=== PATIENT | female | born 1950 | race Caucasian/White ===

== ENCOUNTER 2017-05-12 11:43 | Emergency (ER) | payer MEDICARE, OTHER ==
--- NOTE | 2017-05-12 13:06 | XRAY Preliminary Report ---
Exam: XR ANKLE 3 VIEW RT IMPRESSION: Soft tissue swelling. No acute fracture or dislocation identified. [facility] SITE ID: [id number]
--- NOTE | 2017-05-12 13:06 | XRAY Report ---
EXAM: RIGHT ANKLE RADIOGRAPHY EXAM DATE: 05/12/2017 12:08 PM. CLINICAL HISTORY: Pain after fall COMPARISON: None. TECHNIQUE: 3 views. FINDINGS: Bones: Bony mineralization appears appropriate. No acute fracture or focal osseous destruction. Small plantar and posterior calcaneal spurs. Joints: Alignment and joint spaces appear maintained. No dislocation. Soft Tissues: Soft tissue swelling. IMPRESSION: Soft tissue swelling. No acute fracture or dislocation identified. [facility] Referring Provider Line: [phone] SITE ID: [id number]
[2017-05-12] MEDS ORDERED: HYDROmorphone 1 MG/ML CARPUJECT IM STA (13:19)
--- NOTE | 2017-05-12 13:21 | ED Physician Documentation ---
PD HPI Fall - Stated complaint Stated Complaint: GLF/HEAD, BACK, ANKLE PX - Chief complaint Chief Complaint: Back Pain - History obtained from History obtained from: Patient, Family - History of Present Illness Mechanism of injury: Slipped (Ground-level fall in the garage falling backwards against concrete, her right leg was under her and she has right ankle pain and also has low back pain on the left side. 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 - Present Medications Home Medications: Ambulatory Orders Medication Instructions Recorded Confirmed Cyclobenzaprine [Flexeril] 10 mg PO Q8H PRN #20 tablet 02/17/13 Levothyroxine Sodium [Synthroid] 75 mcg PO DAILY 02/17/13 02/17/13 Metformin HCl [Glucophage] 1,500 mg PO HS 02/17/13 02/17/13 oxyCODONE [Roxicodone] 5 mg PO Q4-6H PRN #10 tablet 02/17/13 predniSONE [Deltasone] 60 mg PO DAILY 5 Days tablet 02/17/13 Acetaminophen with Codeine 1 each PO Q4H PRN #15 tablet 05/12/17 [Tylenol with Codeine #3 Tablet] Ciprofloxacin HCl [Cipro] 500 mg PO BID #14 tablet 05/12/17 - Allergies Allergies/Adverse Reactions: Allergies Allergy/AdvReac Type Severity Reaction Status Date / Time No Known Drug Allergies Allergy Verified 02/17/13 11:02 - Social History Does the pt smoke?: No Smoking Status: Never smoker Does the pt drink ETOH?: No Does the pt have substance abuse?: No - Immunizations Immunizations are current?: Yes PD ED PE NORMAL - Vitals Vital signs reviewed: Yes - General General: Alert and oriented X 3, No acute distress - HEENT HEENT: PERRL, EOMI - Neck Neck: Supple, no meningeal sign, No bony TTP - Cardiac Cardiac: RRR, No murmur - Respiratory Respiratory: No respiratory distress, Clear bilaterally - Abdomen Abdomen: Non tender - Back Back: Other (She has what seems like soft tissue tenderness around L2 laterally to the left. It is not in the midline. There is no cally or ecchymosis there.) - Derm Derm: Normal color, Warm and dry - Extremities Extremities: Other (Right ankle is tender laterally with some swelling but no deformity or limited range of motion.) - Neuro Neuro: Alert and oriented X 3, Normal speech Results - Vitals Vitals: Vital Signs - 24 hr 05/12/17 11:49 Temperature 36.1 C L Heart Rate 94 Respiratory 20 Rate Blood Pressure 149/49 H O2 Saturation 100 Oxygen O2 Source Room air - Labs Labs: Laboratory Tests 05/12/17 13:30 Urine Color YELLOW Urine Clarity CLOUDY Urine pH 5.5 Ur Specific [place] 1.025 Urine Protein TRACE Urine Glucose (UA) NEGATIVE Urine Ketones NEGATIVE Urine Occult Blood NEGATIVE Urine Nitrite POSITIVE H Urine Bilirubin NEGATIVE Urine Urobilinogen 0.2 (NORMAL) Ur Leukocyte Esterase NEGATIVE Urine RBC TNTC H Urine WBC >25 H Ur Squamous Epith Cells FEW Squamous Urine Bacteria Many H Ur Microscopic Review INDICATED Urine Culture Comments INDICATED - Rads (name of study) LS XR Radiology: EMP read contemporaneously (NAD) PD MEDICAL DECISION MAKING - ED course ED course: 66-year-old woman with fall and back pain, some flank pain but no overt bony tenderness, x-rays negative. Also an ankle sprain. Urine looks more like pyelonephritis than anything else and is so treated. Departure - Departure Disposition: 01 Home, Self Care Clinical Impression: Pyelonephritis Back pain Qualifiers: Back pain location: low back pain Chronicity: acute Back pain laterality: left Sciatica presence: without sciatica Qualified Code(s): M54.5 - Low back pain Fall Qualifiers: Encounter type: initial encounter Qualified Code(s): W19.XXXA - Unspecified fall, initial encounter Right ankle sprain Qualifiers: Encounter type: initial encounter Involved ligament of ankle: anterior talofibular ligament Qualified Code(s): S93.491A - Sprain of other ligament of right ankle, initial encounter Condition: Good Record reviewed to determine appropriate education?: Yes Instructions: Pyelonephritis Dc, ED Sprain Ankle W X Ray, ED Low Back Pain Injury Prescriptions: Acetaminophen with Codeine [Tylenol with Codeine #3 Tablet] 1 each PO Q4H PRN # 15 tablet PRN Reason: Pain Ciprofloxacin HCl [Cipro] 500 mg PO BID #14 tablet Comments: Call your doctor to arrange a follow-up appointment, make the next available appointment. In the interim, return anytime if worse or if new symptoms develop. Do not drink or drive while taking narcotic pain medication. Note that many narcotic pain relievers also contain Tylenol/acetaminophen. Please ensure that your total dose of acetaminophen from all sources does not exceed 3 g (3000 mg) per day. You may get constipated while on this medication. Take a stool softener such as Colace twice a day while you are on it. Also add an abkk-crx-cpacnac laxative such as senna or MiraLAX on any day that you do not have a bowel movement. If you received a narcotic pain medication or sedative while in the emergency department, do not drive for the next 24 hours. We will culture your urine, the results should be done in 48-72 hours. If an antibiotic change is necessary we will call you. Return if worse in the meantime, especially if you develop increasing flank pain, fevers, or cannot keep down the medication.
[2017-05-12 13:50] LABS: BILIRUBIN,URINE NEGATIVE (NEGATIVE); GLUCOSE, URINE (UA) NEGATIVE (NEGATIVE); KETONES,URINE (UA) NEGATIVE (NEGATIVE); LEUKOCYTE ESTERASE, URINE NEGATIVE (NEGATIVE); NITRITE,URINE POSITIVE (NEGATIVE); OCCULT BLOOD,URINE NEGATIVE (NEGATIVE); PH,URINE 5.5 PH (5.0-7.5); PROTEIN,URINE TRACE mg/dL (NEGATIVE); UROBILINOGEN,URINE 0.2 (NORMAL) E.U./dL (NORMAL)
[2017-05-12 13:51] LABS: CLARITY,URINE CLOUDY (CLEAR)
--- NOTE | 2017-05-12 14:05 | XRAY Report ---
EXAM: LUMBOSACRAL SPINE RADIOGRAPHY EXAM DATE: 05/12/2017 01:57 PM. CLINICAL HISTORY: Back pain, fall. COMPARISONS: None. TECHNIQUE: 3 views. FINDINGS: Alignment: Normal. No spondylolisthesis or scoliosis. Bones: 5 lumbar vertebrae. No fractures or bone lesions. Disks: Minimal disk space narrowing at T12-L1, L1-L2, and L2-L3 with marginal lipping. Other disk spa ori well-preserved. Facets: Degenerative changes most marked at L4-L5 and L5-S1. Sacroiliac Joints: Unremarkable. Soft Tissues: Unremarkable. Surgical clips in right upper quadrant. IMPRESSION: Degenerative changes. No acute disease. [facility] Referring Provider Line: [phone] SITE ID: [id number]
[2017-05-12 14:08] LABS: BACTERIA,URINE Many /HPF (None Seen); RBC,URINE TNTC /HPF (0-5); SQUAMOUS EPITHELIAL CELL,UR FEW Squamous (<= Few)
[2017-05-12] MEDS ORDERED: CIPROFLOXACIN 250 MG TABLET PO STA (14:25)
[2017-05-12 14:33] VITALS: BP 155/95
== END 2017-05-12 14:41 | disposition home or self-care (01) ==
LOC: ED 11:43
DX: N12 Tubulo-interstitial nephritis, not specified as acute or chronic (principal); M54.5 Low back pain; S93.491A Sprain of other ligament of right ankle, initial encounter; W18.30XA Fall on same level, unspecified, initial encounter; Y92.015 Private garage of single-family (private) house as the place of occurrence of the external cause; E11.9 Type 2 diabetes mellitus without complications; Z79.84 Long term (current) use of oral hypoglycemic drugs; E03.9 Hypothyroidism, unspecified
CPT/HCPCS: 72100; 73610; 81001; 87086; 87181; 96372; 99283; 99284; A9270; J1170; 81003

== ENCOUNTER 2017-05-13 13:10 | Outpatient (CLI) | payer MEDICARE, OTHER | END 2017-05-13 13:11 | disposition critical access hospital (66) | LOC: EMS 13:10 | PROVIDERS: ATTEND Surgery | DX: R10.32 Left lower quadrant pain (principal) | CPT/HCPCS: A0425; A0429 ==

== ENCOUNTER 2017-05-13 13:32 | Observation (INO) | payer MEDICARE, OTHER ==
[2017-05-13] MEDS ORDERED: HYDROmorphone 1 MG/ML CARPUJECT IVP STA ×2 (13:37→15:16)
[2017-05-13] MEDS ORDERED: ONDANSETRON 4 MG/2 ML VIAL IVP STA ×2 (13:37→15:25)
--- NOTE | 2017-05-13 13:39 | ED Physician Documentation ---
PD HPI BACK PAIN - Stated complaint Stated Complaint: LL FLANK - History obtained from History obtained from: Patient, Family, EMS - History of Present Illness Timing - onset: Other (She was seen here yesterday after a ground-level fall injuring her Right ankle left flank. X-rays were negative and the ankles much better today. She was noted to have pyuria and current culture is growing E. coli, sensitivities not yet available. She had one dose of Cipro yesterday, just took a second dose now. Took them a while to fill the prescription. 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 - Present Medications Home Medications: Ambulatory Orders Medication Instructions Recorded Confirmed Levothyroxine Sodium [Synthroid] 75 mcg PO DAILY 02/17/13 02/17/13 Metformin HCl [Glucophage] 1,500 mg PO HS 02/17/13 02/17/13 Acetaminophen with Codeine 1 each PO Q4H PRN #15 tablet 05/12/17 [Tylenol with Codeine #3 Tablet] Ciprofloxacin HCl [Cipro] 500 mg PO BID #14 tablet 05/12/17 - Allergies Allergies/Adverse Reactions: Allergies Allergy/AdvReac Type Severity Reaction Status Date / Time No Known Drug Allergies Allergy Verified 05/13/17 13:40 - Social History Does the pt smoke?: No Smoking Status: Never smoker Does the pt drink ETOH?: No Does the pt have substance abuse?: No - Family History Family history: reports: Non contributory - Immunizations Immunizations are current?: Yes PD ED PE NORMAL - Vitals Vital signs reviewed: Yes - General General: Alert and oriented X 3, Other (Obviously in severe pain) - HEENT HEENT: PERRL, EOMI - Neck Neck: Supple, no meningeal sign, No bony TTP - Cardiac Cardiac: RRR, No murmur - Respiratory Respiratory: No respiratory distress, Clear bilaterally - Abdomen Abdomen: Normal bowel sounds, Soft, Non tender - Back Back: No CVA TTP, No spinal TTP - Derm Derm: Normal color, Warm and dry - Extremities Extremities: No edema, No calf tenderness / cord - Neuro Neuro: Alert and oriented X 3, Normal speech - Psych Psych: Normal mood, Normal affect Results - Vitals Vitals: Vital Signs - 24 hr 05/13/17 05/13/17 05/13/17 13:36 14:05 14:45 Temperature 36.0 C L 36.4 C L Heart Rate 96 96 96 Respiratory 20 18 16 Rate Blood Pressure 163/92 H 150/72 H 150/70 H O2 Saturation 95 91 L 94 05/13/17 05/13/17 15:58 17:03 Temperature Heart Rate 92 94 Respiratory 14 14 Rate Blood Pressure 152/88 H 132/58 H O2 Saturation 94 92 Oxygen O2 Source Nasal cannula Oxygen Flow Rate 2 - Labs Labs: Laboratory Tests 05/13/17 05/13/17 13:53 13:53 WBC 11.3 H RBC 5.04 Hgb 16.3 H Hct 47.4 H MCV 94.1 MCH 32.4 H MCHC 34.4 RDW 14.2 Plt Count 170 MPV 8.7 Neut # 8.4 H Lymph # 1.9 [place] # 0.6 Eos # 0.2 Baso # 0.1 Absolute Nucleated RBC 0.01 Nucleated RBC % 0.1 Sodium 135 Potassium 3.9 Chloride 101 Carbon Dioxide 24 Anion Gap 10.0 BUN 16 Creatinine 0.7 Estimated GFR (MDRD) 84 L Glucose 168 H Calcium 9.2 Total Bilirubin 0.7 AST 43 H ALT 45 Alkaline Phosphatase 83 Total Protein 8.1 Albumin 4.4 Globulin 3.7 Albumin/Globulin Ratio 1.2 Lipase 17 L - Rads (name of study) CT KUB Radiology: EMP read contemporaneously (Minimally displaced posterior left 11th rib fracture and left L1 transverse process fracture. No evidence of acute organ injury. She has bilateral adrenal adenomas and diverticulosis without diverticulitis.) PD MEDICAL DECISION MAKING - ED course ED course: 66-year-old woman with fall yesterday, x-rays were negative and she did have pyelonephritis growing E. coli, sensitivities not yet available. Now with severe and uncontrolled pain that was difficult to control in the emergency department. CT done in showing a single rib fracture and a lumbar transverse process fracture. Her pain and nausea was difficult to control here despite several rounds of IV pain and nausea medication. She will be placed in observation for pain control. Spoke with Dr. Barrett for observation at 5:30 PM. Departure - Departure Disposition: ED Place in Observation Clinical Impression: Pyelonephritis Fall Qualifiers: Encounter type: subsequent encounter Qualified Code(s): W19.XXXD - Unspecified fall, subsequent encounter Lumbar transverse process fracture Qualifiers: Encounter type: initial encounter Fracture type: closed Qualified Code(s): S32.009A - Unspecified fracture of unspecified lumbar vertebra, initial encounter for closed fracture Rib fracture Qualifiers: Encounter type: initial encounter Rib fracture type: single rib Fracture type: closed Laterality: left Qualified Code(s): S22.32XA - Fracture of one rib, left side, initial encounter for closed fracture
[2017-05-13 14:02] LABS: BASOPHILS # (AUTO) 0.1 10^3/uL (0.0-0.1); EOSINOPHILS # (AUTO) 0.2 10^3/uL (0.0-0.7); EOSINOPHILS % (AUTO) 1.9 %; HGB - HEMOGLOBIN 16.3 g/dL (12.0-16.0); LYMPHOCYTES # (AUTO) 1.9 10^3/uL (1.5-3.5); MEAN CORPUSCULAR HEMOGLOBIN 32.4 pg (27.0-31.0); MEAN CORPUSCULAR HGB CONC 34.4 g/dL (32.0-36.0); MEAN CORPUSCULAR VOLUME 94.1 fL (81.0-99.0); MEAN PLATELET VOLUME 8.7 fL (7.9-10.8); MONOCYTES # (AUTO) 0.6 10^3/uL (0.0-1.0); MONOCYTES % (AUTO) 5.5 %; NEUTROPHILS # (AUTO) 8.4 10^3/uL (1.5-6.6); NEUTROPHILS % (AUTO) 74.6 %; PLT - PLATELET COUNT 170 10^3/uL (130-450); RED BLOOD COUNT 5.04 10^6/uL (4.20-5.40); RED CELL DISTRIBUTION WIDTH 14.2 % (12.0-15.0); WHITE BLOOD COUNT 11.3 x10^3/uL (4.8-10.8)
[2017-05-13 14:13] LABS: ALBUMIN 4.4 g/dL (3.2-5.5); ALBUMIN/GLOBULIN RATIO 1.2 (1.0-2.2); BILIRUBIN,TOTAL 0.7 mg/dL (0.2-1.0); CALCIUM 9.2 mg/dL (8.5-10.3); CREATININE 0.7 mg/dL (0.4-1.0); TOTAL PROTEIN 8.1 g/dL (6.7-8.2)
[2017-05-13] MEDS ORDERED: KETOROLAC 60 MG/2 ML VIAL IVP STA (16:02)
[2017-05-13] MEDS ORDERED: METOCLOPRAMIDE 10 MG/2 ML VIAL IVP STA (16:11)
--- NOTE | 2017-05-13 16:11 | CT Report ---
EXAM: CT ABDOMEN AND PELVIS EXAM DATE: 05/13/2017 03:38 PM. CLINICAL HISTORY: L flank pain. COMPARISONS: None. TECHNIQUE: Routine axial helical CT imaging was performed through the abdomen and pelvis without IV c ontrast. Reconstructions: Coronal and sagittal. In accordance with CT protocol optimization, one or more of the following dose reduction techniques w ere utilized for this exam: automated exposure control, adjustment of mA and/or KV based on patient s ize, or use of iterative reconstructive technique. FINDINGS: Lung Bases: Comparison mild, nonspecific reticular density within the lung bases. This could represen t atelectasis. Abdominal Organs: Liver demonstrates a mildly nodular contour. There is a small cyst within the left hepatic lobe. The spleen and pancreas demonstrate no significant abnormalities. There are small bilat eral adrenal gland, is. The kidneys demonstrate no stones or hydronephrosis. Gallbladder/bile ducts: No significant abnormalities. Peritoneal Cavity: No dilated or thick-walled bowel is seen. There is distal colon diverticulosis. Th ere is no evidence of diverticulitis. No intraperitoneal free air or free fluid. No enlarged mesenter ic or retroperitoneal lymph nodes. Pelvic Organs: No bladder stones or wall thickening. Noncontrast images of the visualized pelvic orga ns are unremarkable. Vasculature: Unremarkable. Other: There is minimally displaced fracture of the left posterior 11th rib. There is minimally displ aced fracture through the left L1 transverse process. IMPRESSION: 1. There is minimally displaced fracture through the posterior left 11th rib. There is minimally disp laced fracture through the left L1 transverse process. 2. No evidence of acute traumatic injury to the solid or hollow viscus organs of the abdomen and pelv is. 3. There are bilateral adrenal adenomas. 4. There is distal colon diverticulosis. No evidence of diverticulitis. Referring Provider Line: [phone] SITE ID: [id number]
[2017-05-13] MEDS ORDERED: GABAPENTIN 100 MG CAPSULE PO STA (16:14)
[2017-05-13] MEDS ORDERED: cefTRIAXone 1 GM in SODIUM CHLORIDE 0.9% MINIBAG 100 ML IV STA (18:00)
[2017-05-13] MEDS ORDERED: IBUPROFEN 600 MG TABLET PO PRN (18:01)
[2017-05-13] MEDS ORDERED: SODIUM CHLORIDE FLUSH 0.9% 10 ML SYRINGE IVP PRN (18:01)
[2017-05-13] MEDS ORDERED: PROCHLORPERAZINE 10 MG/2 ML VIAL IVP PRN (18:01)
[2017-05-13] MEDS ORDERED: HYDROmorphone 1 MG/ML CARPUJECT IVP PRN (18:01)
[2017-05-13] MEDS ORDERED: ACETAMINOPHEN 325 MG TABLET PO PRN (18:01)
[2017-05-13] MEDS ORDERED: oxyCODONE 5 MG TABLET PO PRN ×2 (18:01)
--- NOTE | 2017-05-13 18:01 | HISTORY & PHYSICAL EXAMINATION ---
Chief Complaint - Chief Complaint Chief Complaint: Back pain History of Present Illness - Admitted From Admitted From:: Emergency department - History Obtained From Records Reviewed: Yes History obtained from: Patient Exam Limitations: None - History of Present Illness HPI Comment/Other: Patient is a 66-year-old female with a past medical history significant for diabetes, hypothyroidism and obesity who presented to the emergency department with complaint of left flank pain and posterior rib pain. The patient was in the emergency room just yesterday after she had a fall at home. The patient states that she was in her garage when she tripped over something and fell backwards hitting her lower back and rib cage. The patient presented to the emergency room at that time with significant pain and underwent x-rays of her ankle and lumbar spine which were negative. During the ER visit the patient also had a UA that was positive and was sent home with ciprofloxacin to treat her UTI. She was also sent home with hydrocodone to relieve her pain. The patient states that today her pain became unbearable to the point where she could barely stand without having severe symptoms. The patient states that the pain was so bad that she had to come back into the emergency department. The patient states that the pain continues to be in the left flank and lower posterior rib cage area. The patient denies any fevers, chills, headaches, blurred vision, runny nose, sore throat, nasal congestion, cough, difficulty swallowing, acid reflux, chest pain, shortness of air, orthopnea, PND, increased lower extremity swelling, abdominal pain, nausea, vomiting, diarrhea, constipation, dysuria, increased urinary urgency, neck stiffness, recent unintentional weight loss, night sweats , skin rash, or any focal neurologic deficits Patient does admit to pain in her left flank, lower back, right ankle which she states was under her when she fell. On presentation to the emergency department the patient was afebrile she was hypertensive and tachycardic and in distress secondary to pain. In the emergency department the patient received IV Toradol, 2 doses of IV Dilaudid and gabapentin with minimal relief of her pain. The patient was also given a dose of IV ceftriaxone for her urinary tract infection. The patient did have repeat labs which did show a mild leukocytosis but otherwise were unremarkable. The patient was placed in observation for intractable pain secondary to what was found to be minimally displaced fracture through the posterior left 11th rib and a minimally displaced fracture through the left L1 transverse process after CT abdomen pelvis. 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 Social History Notes: Patient lives in [place] with her . They retired to [facility]. The patient's was in the . 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 They have 3 children. The patient is a daily smoker and smokes greater than 1 pack per day. She occasionally drinks alcohol on special occasions and denies any illicit drug use - POLST Patient has POLST: No POLST Status: Full Code Meds/Allgy - Home Medications Home Medications: Ambulatory Orders Medication Instructions Recorded Confirmed Levothyroxine Sodium [Synthroid] 75 mcg PO DAILY 02/17/13 02/17/13 Metformin HCl [Glucophage] 1,500 mg PO HS 02/17/13 02/17/13 Acetaminophen with Codeine 1 each PO Q4H PRN #15 tablet 05/12/17 [Tylenol with Codeine #3 Tablet] Ciprofloxacin HCl [Cipro] 500 mg PO BID #14 tablet 05/12/17 - Allergies Allergies/Adverse Reactions: Allergies Allergy/AdvReac Type Severity Reaction Status Date / Time No Known Drug Allergies Allergy Verified 05/13/17 13:40 Review of Systems - Other Findings Other Findings: A comprehensive review of systems was performed the pertinent positives and negatives are stated above in the HPI and the remainder of the review of systems is negative. Exam - Vital Signs Reviewed Vital Signs: Yes Vital Signs: Vital Signs x48h Temp Pulse Resp BP Pulse Ox 05/13/17 17:03 94 14 132/58 H 92 05/13/17 15:58 92 14 152/88 H 94 05/13/17 14:45 36.4 C L 96 16 150/70 H 94 05/13/17 14:05 96 18 150/72 H 91 L 05/13/17 13:36 36.0 C L 96 20 163/92 H 95 - Physical Exam General Appearance: positive: Alert, Moderate distress (In pain and distress) Eyes Bilateral: positive: Normal inspection, PERRL, EOMI, No lid inflammation, Conjunctivae nml, No scleral icterus ENT: positive: ENT inspection nml, Pharynx nml, No signs of dehydration. negative: Purulent nasal drainage, Pharyngeal erythema, Oral lesions Neck: positive: Nml inspection, Thyroid nml, No JVD, Trachea midline. negative : Thyromegaly, Lymphadenopathy (R), Lymphadenopathy (L), Stiff neck, Carotid bruit, Tracheal deviation Respiratory: positive: Chest non-tender, No respiratory distress, Rales (bases) Cardiovascular: positive: Regular rate & rhythm, No murmur, No gallop Peripheral Pulses: positive: 2+ Abdomen: positive: Non-tender, No organomegaly, Nml bowel sounds, No distention. negative: Guarding, Rebound, Hepatomegaly Back: positive: Nml inspection, CVA tenderness (L). negative: CVA tenderness (R ) Skin: positive: Color nml, No rash, Warm. negative: Cyanosis, Diaphoresis, Pallor Extremities: positive: Nml appearance, No pedal edema, Other (Decreased ROM of spine secondary to pain) Neurologic/Psychiatric: positive: Oriented x3, CN's nml (2-12), Motor nml, Sensation nml, Mood/affect nml Conclusion/Plan - Problem List (1) Intractable pain Conclusion/Plan: Patient presents with intractable pain secondary to L1 transverse process and posterior 11th rib minimally displaced fractures after a fall at home. Patient continued to have pain despite several doses of Dilaudid, Toradol and gabapentin. Patient is being placed in observation for pain control, physical therapy and incentive spirometry Plan: IV Dilaudid as needed, ibuprofen 600 mg every 6 hours, Valium, lidocaine patch and heating pad for treatment of pain Oxycodone and Tylenol Patient will have to be weaned off IV pain medication and we will need to find a oral regimen with which the patient could go home hopefully tomorrow. (2) Lumbar transverse process fracture Conclusion/Plan: Patient has an L1 minimally displaced transverse fracture. This occurred secondary to a fall Patient has intractable pain due to the fracture We will treat as above in #1 Qualifiers: Encounter type: initial encounter Fracture type: closed Qualified Code(s) : S32.009A - Unspecified fracture of unspecified lumbar vertebra, initial encounter for closed fracture (3) Rib fracture Conclusion/Plan: Patient has a minimally displaced posterior 11th rib fracture which is causing intractable pain Patient will require incentive spirometry to avoid pneumonia Patient will be treated as above in #1 Qualifiers: Encounter type: initial encounter Rib fracture type: single rib Fracture type: closed Laterality: left Qualified Code(s): S22.32XA - Fracture of one rib, left side, initial encounter for closed fracture (4) Pyelonephritis Conclusion/Plan: The patient did have a positive UA and urine culture growing E. coli. The patient has mild leukocytosis and does have left flank pain with left flank tenderness clinically this is diagnosis of pyelonephritis. However the left flank pain and tenderness may be secondary to her recent fall and fractures. Patient will be treated as a urinary tract infection and we will treat her with IV ceftriaxone while she is hospitalized and then switch her to oral medications depending on culture results. (5) Diabetes Conclusion/Plan: Patient has diabetes and is controlled with metformin. Patient's blood glucose is elevated on presentation this could be stress from her infection as well as from the pain Patient will be placed on sliding scale insulin We will hold metformin Patient will be placed on a diabetic diet We will check blood glucose before meals at bedtime. Qualifiers: Diabetes mellitus type: type 2 (6) Hypothyroidism Conclusion/Plan: Patient has history of hypothyroidism and will be continued on her home dose of Synthroid currently she appears stable from the standpoint of hypothyroidism - Lab Results Lab results reviewed: Yes Fish Bones: 05/13/17 13:53 05/13/17 13:53 Other Lab Results: Laboratory Results WBC 11.3 x10^3/uL (4.8-10.8) H 05/13/17 13:53 RBC 5.04 10^6/uL (4.20-5.40) 05/13/17 13:53 Hgb 16.3 g/dL (12.0-16.0) H 05/13/17 13:53 Hct 47.4 % (37.0-47.0) H 05/13/17 13:53 MCV 94.1 fL (81.0-99.0) 05/13/17 13:53 MCH 32.4 pg (27.0-31.0) H 05/13/17 13:53 MCHC 34.4 g/dL (32.0-36.0) 05/13/17 13:53 RDW 14.2 % (12.0-15.0) 05/13/17 13:53 Plt Count 170 10^3/uL (130-450) 05/13/17 13:53 MPV 8.7 fL (7.9-10.8) 05/13/17 13:53 Neut # 8.4 10^3/uL (1.5-6.6) H 05/13/17 13:53 Lymph # 1.9 10^3/uL (1.5-3.5) 05/13/17 13:53 [place] # 0.6 10^3/uL (0.0-1.0) 05/13/17 13:53 Eos # 0.2 10^3/uL (0.0-0.7) 05/13/17 13:53 Baso # 0.1 10^3/uL (0.0-0.1) 05/13/17 13:53 Absolute Nucleated RBC 0.01 x10^3/uL 05/13/17 13:53 Nucleated RBC % 0.1 /100WBC 05/13/17 13:53 Sodium 135 mmol/L (135-145) 05/13/17 13:53 Potassium 3.9 mmol/L (3.5-5.0) 05/13/17 13:53 Chloride 101 mmol/L (101-111) 05/13/17 13:53 Carbon Dioxide 24 mmol/L (21-32) 05/13/17 13:53 Anion Gap 10.0 (6-13) 05/13/17 13:53 BUN 16 mg/dL (6-20) 05/13/17 13:53 Creatinine 0.7 mg/dL (0.4-1.0) 05/13/17 13:53 Estimated GFR (MDRD) 84 (>89) L 05/13/17 13:53 Glucose 168 mg/dL (70-100) H 05/13/17 13:53 Calcium 9.2 mg/dL (8.5-10.3) 05/13/17 13:53 Total Bilirubin 0.7 mg/dL (0.2-1.0) 05/13/17 13:53 AST 43 IU/L (10-42) H 05/13/17 13:53 ALT 45 IU/L (10-60) 05/13/17 13:53 Alkaline Phosphatase 83 IU/L (42-121) 05/13/17 13:53 Total Protein 8.1 g/dL (6.7-8.2) 05/13/17 13:53 Albumin 4.4 g/dL (3.2-5.5) 05/13/17 13:53 Globulin 3.7 g/dL (2.1-4.2) 05/13/17 13:53 Albumin/Globulin Ratio 1.2 (1.0-2.2) 05/13/17 13:53 Lipase 17 U/L (22-51) L 05/13/17 13:53 - Diagnostic Imaging Results Diagnostic Imaging Results: positive: Final report reviewed Diagnostic Imaging Results Comments: CT abdomen/pelvis Impression: 1. There is minimally displaced fracture through the posterior left 11th rib. There is minimally displaced fracture through the left L1 transverse process. 2. No evidence of acute traumatic injury to the solid or hollow viscus organs of the abdomen and pelvis. 3. There are bilateral adrenal adenomas 4. There is distal colon diverticulosis. No evidence of diverticulitis. Core Measures - Anticipated LOS I expect patient to be DC'd or transferred within 96 hours.: Yes - DVT/VTE - Prophylaxis VTE/DVT Prophylaxis med ordered at admit?: Yes
[2017-05-13] MEDS ORDERED: LIDOCAINE PATCH 5% TOP PRN (18:58)
[2017-05-13] MEDS: SODIUM CHLORIDE 0.9% 1,000 ML IV SCH (19:25)
[2017-05-13] MEDS: diazePAM 5 MG TABLET PO SCH ×2 (19:55→20:58)
[2017-05-13] MEDS: NICOTINE 21 MG PATCH TOP SCH (19:55)
[2017-05-13] MEDS: INSULIN ASPART 300 UNIT/3 ML PEN SUBQ SCH (21:33)
[2017-05-13] MEDS: ONDANSETRON 4 MG/2 ML VIAL IVP PRN (21:36)
[2017-05-13] MEDS: PHENAZOPYRIDINE 100 MG TABLET PO SCH (22:01)
[2017-05-14] MEDS: SODIUM CHLORIDE FLUSH 0.9% 10 ML SYRINGE IVP SCH ×2 (03:37→09:01)
[2017-05-14] MEDS: PHENAZOPYRIDINE 100 MG TABLET PO SCH (06:42)
[2017-05-14 06:50] LABS: BASOPHILS # (AUTO) 0.1 10^3/uL (0.0-0.1); BASOPHILS % (AUTO) 0.7 %; EOSINOPHILS # (AUTO) 0.1 10^3/uL (0.0-0.7); EOSINOPHILS % (AUTO) 0.7 %; HGB - HEMOGLOBIN 15.1 g/dL (12.0-16.0); LYMPHOCYTES # (AUTO) 1.8 10^3/uL (1.5-3.5); LYMPHOCYTES % (AUTO) 14.7 %; MEAN CORPUSCULAR HEMOGLOBIN 31.5 pg (27.0-31.0); MEAN CORPUSCULAR HGB CONC 32.9 g/dL (32.0-36.0); MEAN CORPUSCULAR VOLUME 95.9 fL (81.0-99.0); MEAN PLATELET VOLUME 8.4 fL (7.9-10.8); MONOCYTES # (AUTO) 0.9 10^3/uL (0.0-1.0); MONOCYTES % (AUTO) 7.3 %; NEUTROPHILS # (AUTO) 9.2 10^3/uL (1.5-6.6); NEUTROPHILS % (AUTO) 76.6 %; PLT - PLATELET COUNT 148 10^3/uL (130-450); RED BLOOD COUNT 4.79 10^6/uL (4.20-5.40); RED CELL DISTRIBUTION WIDTH 14.3 % (12.0-15.0)
[2017-05-14 06:59] LABS: ALBUMIN 3.8 g/dL (3.2-5.5); ALBUMIN/GLOBULIN RATIO 1.2 (1.0-2.2); BILIRUBIN,TOTAL 0.9 mg/dL (0.2-1.0); CALCIUM 8.5 mg/dL (8.5-10.3); CREATININE 0.5 mg/dL (0.4-1.0)
[2017-05-14] MEDS: SODIUM CHLORIDE 0.9% 1,000 ML IV SCH (07:04)
[2017-05-14] MEDS: ONDANSETRON 4 MG/2 ML VIAL IVP PRN (07:30)
[2017-05-14 07:45] LABS: HB2 TOTAL 16.3 g/dL; HEMOGLOBIN A1C 0.87 g/dL
[2017-05-14] MEDS: INSULIN ASPART 300 UNIT/3 ML PEN SUBQ SCH (08:05)
[2017-05-14] MEDS ORDERED: PROMETHAZINE INJ 25 MG in SODIUM CHLORIDE 0.9% 50 ML IV PRN (08:19)
[2017-05-14] MEDS ORDERED: traMADol 50 MG TABLET PO PRN (08:19)
[2017-05-14] MEDS ORDERED: FAMOTIDINE 20 MG TABLET PO SCH (09:00)
[2017-05-14] MEDS ORDERED: POLYETHYLENE GLYCOL 3350 17 GM PACKET PO SCH (09:00)
[2017-05-14] MEDS ORDERED: ENOXAPARIN 40 MG/0.4 ML SYRINGE SUBQ SCH (09:00)
[2017-05-14] MEDS ORDERED: cefTRIAXone 1 GM in SODIUM CHLORIDE 0.9% MINIBAG 100 ML IV SCH (09:00)
[2017-05-14] MEDS: NICOTINE 21 MG PATCH TOP SCH (09:05)
--- NOTE | 2017-05-14 10:49 | Discharge Plan ---
Discharge Plan Disposition: Home, Self Care Condition: Fair Prescriptions: traMADol [Ultram] 50 mg PO Q4HR PRN #30 tablet PRN Reason: Pain Ibuprofen [Motrin] 600 mg PO Q6HR PRN #60 tablet PRN Reason: Pain 1 to 4 Ondansetron [Zofran Odt] 8 mg PO Q8HR PRN #30 tab.rapdis PRN Reason: Nausea / Vomiting Blood Sugar Diagnostic [Glucometer Strips] 1 each MC TID #1 pkg Blood-Glucose Meter [Glucometer] 1 each MC DAILY #1 each diazePAM [Valium] 5 mg PO QPM #20 tablet Diet: Diabetic Activity Restrictions: Activity as Tolerated Shower Restrictions: No Driving Restrictions: No Weight Bearing: Full Weight Instruction Topics: Fx Rib Additional Instructions or Follow Up instructions: He presented to the emergency department with back pain. You were found to have a fracture of your 11th rib as well as of the L1 transverse process on her spine. You were kept in the hospital overnight to get her pain under control. It appears that your pain is now being controlled with oral medications. We are discharging him home with oral tramadol, ibuprofen, Tylenol and a muscle relaxant called Valium. Please only take the tramadol when her pain is very severe in the meantime alternate between Tylenol and ibuprofen for pain. Take the muscle relaxant at night before you go to bed. Your pain will likely continue for the next few weeks but should improve over time. You are also found to have a urinary tract infection please continue the ciprofloxacin that was already prescribed you from the emergency department to complete her treatment for UTI. No Smoking: If you smoke, Please STOP! Call for help.
--- NOTE | 2017-05-14 11:11 | DISCHARGE SUMMARY ---
Discharge Summary Admit Date: 05/13/17 Discharge Date: 05/14/17 Discharging Provider: Ochoa Barrett MD Primary Care Provider: [facility] Condition at Discharge: Fair Discharge Disposition: 01 Home, Self Care - DIAGNOSES Admission Diagnoses: 1. Intractable pain 2. Unspecified fracture of lumbar vertebra 3. Fracture of 11th rib on left side 4. Pyelonephritis 5. Diabetes 6. Hypothyroidism Discharge Diagnoses with Status of Each Condition: 1. Intractable pain: Stable 2. Unspecified fracture of lumbar vertebra: Stable 3. Fracture of 11th rib on left side: Stable 4. Pyelonephritis: Stable 5. Diabetes: Stable 6. Hypothyroidism: Stable - HPI History of Present Illness: Patient is a 66-year-old female with a past medical history significant for diabetes, hypothyroidism and obesity who presented to the emergency department with complaint of left flank pain and posterior rib pain. The patient was in the emergency room just yesterday after she had a fall at home. The patient states that she was in her garage when she tripped over something and fell backwards hitting her lower back and rib cage. The patient presented to the emergency room at that time with significant pain and underwent x-rays of her ankle and lumbar spine which were negative. During the ER visit the patient also had a UA that was positive and was sent home with ciprofloxacin to treat her UTI. She was also sent home with hydrocodone to relieve her pain. The patient states that today her pain became unbearable to the point where she could barely stand without having severe symptoms. The patient states that the pain was so bad that she had to come back into the emergency department. The patient states that the pain continues to be in the left flank and lower posterior rib cage area. The patient denies any fevers, chills, headaches, blurred vision, runny nose, sore throat, nasal congestion, cough, difficulty swallowing, acid reflux, chest pain, shortness of air, orthopnea, PND, increased lower extremity swelling, abdominal pain, nausea, vomiting, diarrhea, constipation, dysuria, increased urinary urgency, neck stiffness, recent unintentional weight loss, night sweats , skin rash, or any focal neurologic deficits Patient does admit to pain in her left flank, lower back, right ankle which she states was under her when she fell. On presentation to the emergency department the patient was afebrile she was hypertensive and tachycardic and in distress secondary to pain. In the emergency department the patient received IV Toradol, 2 doses of IV Dilaudid and gabapentin with minimal relief of her pain. The patient was also given a dose of IV ceftriaxone for her urinary tract infection. The patient did have repeat labs which did show a mild leukocytosis but otherwise were unremarkable. The patient was placed in observation for intractable pain secondary to what was found to be minimally displaced fracture through the posterior left 11th rib and a minimally displaced fracture through the left L1 transverse process after CT abdomen pelvis. - HOSPITAL COURSE Hospital Course: (1) Intractable pain Conclusion/Plan: Patient presents with intractable pain secondary to L1 transverse process and posterior 11th rib minimally displaced fractures after a fall at home. Patient continued to have pain despite several doses of Dilaudid, Toradol and gabapentin. Patient placed in obs and pain was controlled with PO tramadol, ibuprofen, tylenol and valium Patient seen by PT and given a walker for home Patient discharged home with prescriptions for above (2) Lumbar transverse process fracture Conclusion/Plan: Patient has an L1 minimally displaced transverse fracture. This occurred secondary to a fall Patient had intractable pain due to the fracture Patient placed in obs and pain was controlled with PO tramadol, ibuprofen, tylenol and valium Patient seen by PT and given a walker for home Patient discharged home with prescriptions for above Qualifiers: Encounter type: initial encounter Fracture type: closed Qualified Code(s) : S32.009A - Unspecified fracture of unspecified lumbar vertebra, initial encounter for closed fracture (3) Rib fracture Conclusion/Plan: Patient has a minimally displaced posterior 11th rib fracture which is causing intractable pain Patient placed in obs and pain was controlled with PO tramadol, ibuprofen, tylenol and valium Patient seen by PT and given a walker for home Patient discharged home with prescriptions for above Qualifiers: Encounter type: initial encounter Rib fracture type: single rib Fracture type: closed Laterality: left Qualified Code(s): S22.32XA - Fracture of one rib, left side, initial encounter for closed fracture (4) Pyelonephritis Conclusion/Plan: Discharged with PO cipro Urine cx grew ecoli susceptible to cipro (5) Diabetes Conclusion/Plan: Stable Patient continued on metformin at discharge Qualifiers: Diabetes mellitus type: type 2 (6) Hypothyroidism Conclusion/Plan: Stable continued on synthroid - ALLERGIES Allergies/Adverse Reactions: Allergies Allergy/AdvReac Type Severity Reaction Status Date / Time No Known Drug Allergies Allergy Verified 05/13/17 13:40 - MEDICATIONS Home Medications: Ambulatory Orders Medication Instructions Recorded Confirmed Levothyroxine Sodium [Synthroid] 75 mcg PO DAILY 02/17/13 02/17/13 Metformin HCl [Glucophage] 1,500 mg PO HS 02/17/13 02/17/13 Blood Sugar Diagnostic [Glucometer 1 each TID #1 pkg 05/14/17 Strips] Blood-Glucose Meter [Glucometer] 1 each MC DAILY #1 each 05/14/17 Ibuprofen [Motrin] 600 mg PO Q6HR PRN #60 tablet 05/14/17 Ondansetron [Zofran Odt] 8 mg PO Q8HR PRN #30 tab.rapdis 05/14/17 diazePAM [Valium] 5 mg PO QPM #20 tablet 05/14/17 traMADol [Ultram] 50 mg PO Q4HR PRN #30 tablet 05/14/17 - PHYSICAL EXAM AT DISCHARGE General Appearance: positive: Alert, Mild distress (pain but improved) Eyes Bilateral: positive: Normal inspection, PERRL, EOMI, No lid inflammation, Conjunctivae nml, No scleral icterus ENT: positive: ENT inspection nml, Pharynx nml, No signs of dehydration. negative: Purulent nasal drainage, Pharyngeal erythema, Oral lesions Neck: positive: Nml inspection, Thyroid nml, No JVD, Trachea midline. negative : Thyromegaly, Lymphadenopathy (R), Lymphadenopathy (L), Stiff neck, Carotid bruit, Tracheal deviation Respiratory: positive: Chest non-tender, No respiratory distress, Breath sounds nml. negative: Wheezes, Rales, Rhonchi Cardiovascular: positive: Regular rate & rhythm, No murmur, No gallop Peripheral Pulses: positive: 2+ Abdomen: positive: Non-tender, No organomegaly, Nml bowel sounds, No distention. negative: Guarding, Rebound, Hepatomegaly Back: positive: Nml inspection. negative: CVA tenderness (R), CVA tenderness (L ) Skin: positive: Color nml, No rash, Warm. negative: Cyanosis, Diaphoresis, Skin rash Extremities: positive: Non-tender, Full ROM, Nml appearance, No pedal edema Neurologic/Psychiatric: positive: Oriented x3, CN's nml (2-12), Motor nml, Sensation nml, Mood/affect nml - LABS Result Diagrams: 05/14/17 06:38 05/14/17 06:38 Other Lab Results: Laboratory Results WBC 12.0 x10^3/uL (4.8-10.8) H 05/14/17 06:38 RBC 4.79 10^6/uL (4.20-5.40) 05/14/17 06:38 Hgb 15.1 g/dL (12.0-16.0) 05/14/17 06:38 Hct 45.9 % (37.0-47.0) 05/14/17 06:38 MCV 95.9 fL (81.0-99.0) 05/14/17 06:38 MCH 31.5 pg (27.0-31.0) H 05/14/17 06:38 MCHC 32.9 g/dL (32.0-36.0) 05/14/17 06:38 RDW 14.3 % (12.0-15.0) 05/14/17 06:38 Plt Count 148 10^3/uL (130-450) 05/14/17 06:38 MPV 8.4 fL (7.9-10.8) 05/14/17 06:38 Neut # 9.2 10^3/uL (1.5-6.6) H 05/14/17 06:38 Lymph # 1.8 10^3/uL (1.5-3.5) 05/14/17 06:38 [place] # 0.9 10^3/uL (0.0-1.0) 05/14/17 06:38 Eos # 0.1 10^3/uL (0.0-0.7) 05/14/17 06:38 Baso # 0.1 10^3/uL (0.0-0.1) 05/14/17 06:38 Absolute Nucleated RBC 0.00 x10^3/uL 05/14/17 06:38 Nucleated RBC % 0.0 /100WBC 05/14/17 06:38 Sodium 137 mmol/L (135-145) 05/14/17 06:38 Potassium 3.9 mmol/L (3.5-5.0) 05/14/17 06:38 Chloride 104 mmol/L (101-111) 05/14/17 06:38 Carbon Dioxide 24 mmol/L (21-32) 05/14/17 06:38 Anion Gap 9.0 (6-13) 05/14/17 06:38 BUN 16 mg/dL (6-20) 05/14/17 06:38 Creatinine 0.5 mg/dL (0.4-1.0) 05/14/17 06:38 Estimated GFR (MDRD) 124 (>89) 05/14/17 06:38 Glucose 164 mg/dL (70-100) H 05/14/17 06:38 Glycated Hemoglobin 7.0 % (4.6-6.2) H 05/14/17 06:38 Estim Average Glucose 154 (70-100) H 05/14/17 06:38 Calcium 8.5 mg/dL (8.5-10.3) 05/14/17 06:38 Total Bilirubin 0.9 mg/dL (0.2-1.0) 05/14/17 06:38 AST 32 IU/L (10-42) 05/14/17 06:38 ALT 36 IU/L (10-60) 05/14/17 06:38 Alkaline Phosphatase 72 IU/L (42-121) 05/14/17 06:38 Total Protein 7.0 g/dL (6.7-8.2) 05/14/17 06:38 Albumin 3.8 g/dL (3.2-5.5) 05/14/17 06:38 Globulin 3.2 g/dL (2.1-4.2) 05/14/17 06:38 Albumin/Globulin Ratio 1.2 (1.0-2.2) 05/14/17 06:38 Lipase 17 U/L (22-51) L 05/13/17 13:53 - DIAGNOSTIC IMAGING Diagnostic Imaging Results: Final report reviewed Diagnostic Imaging Results Comments: CT abdomen/pelvis Impression: 1. There is minimally displaced fracture through the posterior left 11th rib. There is minimally displaced fracture through the left L1 transverse process. 2. No evidence of acute traumatic injury to the solid or hollow viscus organs of the abdomen and pelvis. 3. There are bilateral adrenal adenomas 4. There is distal colon diverticulosis. No evidence of diverticulitis. - FOLLOW UP Follow Up: Patient will follow up with her PCP if pain continues. Discharged with a walker. - TIME SPENT Time Spent in Discharge (Minutes): 35
[2017-05-14 11:55] VITALS: BP 166/79
== END 2017-05-14 12:40 | disposition home or self-care (01) ==
LOC: EDUNIT# → EDBD → ED 13:32 → OBS 18:02
PROVIDERS: ADMIT Internal Medicine; ATTEND Internal Medicine
DX: G89.11 Acute pain due to trauma (principal); S32.019A Unspecified fracture of first lumbar vertebra, initial encounter for closed fracture; S22.32XA Fracture of one rib, left side, initial encounter for closed fracture; M25.571 Pain in right ankle and joints of right foot; W01.0XXA Fall on same level from slipping, tripping and stumbling without subsequent striking against object, initial encounter; Y92.008 Other place in unspecified non-institutional (private) residence as the place of occurrence of the external cause; N12 Tubulo-interstitial nephritis, not specified as acute or chronic; E11.9 Type 2 diabetes mellitus without complications; E03.9 Hypothyroidism, unspecified; E66.9 Obesity, unspecified; B96.20 Unspecified Escherichia coli [E. coli] as the cause of diseases classified elsewhere; Z68.38 Body mass index [BMI] 38.0-38.9, adult; F17.210 Nicotine dependence, cigarettes, uncomplicated; Z79.84 Long term (current) use of oral hypoglycemic drugs; Z79.899 Other long term (current) drug therapy
CPT/HCPCS: 36415; 74176; 80053; 83036; 83690; 85025; 87040; 96361; 96365; 96366; 96372; 96375; 96376; 99284; A9270; G0378; J1170; J1650; J2765

== ENCOUNTER 2020-12-31 15:09 | Outpatient (CLI) | payer MEDICARE, OTHER ==
--- NOTE | 2020-12-31 16:23 | DEXA Report ---
PROCEDURE: Dexa Spine and/or Hip INDICATIONS: MENOPAUSAL TECHNIQUE: Dual energy x-ray absorptiometry (DXA) was performed on a [employer] System. Regions measur ed are the AP Spine, femoral neck, and if needed forearm. COMPARISON: None. FINDINGS: Lumbar Spine: Bone Mineral Density 1.45 g/cm/cm,T score 2.2, normal Left Femoral Neck: Bone Mineral Density 1.01 g/cm/cm, T score -0.2, normal (T score greater or equal to -1.0: NORMAL) (T score from -1.1 to -2.4: OSTEOPENIA) (T score less than or equal to -2.5 to: OSTEOPOROSIS) Impression: Normal bone mineral density. Patients with diagnosis of osteoporosis or osteopenia should have regular bone mineral density assess ment. For those eligible for Medicare, routine testing is allowed once every 2 years. Testing frequ ency can be increased for patients who have rapidly progressing disease or for those who are receivin g medical therapy to restore bone mass. Reviewed by: Saul Freeman MD on 12/31/2020 4:22 PM PST Approved by: Saul Freeman MD on 12/31/2020 4:22 PM PST Station ID: [id number]
== END 2020-12-31 15:10 | disposition home or self-care (01) ==
LOC: DI 15:09
PROVIDERS: ATTEND Student in an Organized Health Care Education/Training Program
DX: Z78.0 Asymptomatic menopausal state (principal)

== ENCOUNTER 2022-07-19 15:05 | Emergency (ER) | payer MEDICARE, OTHER ==
--- NOTE | 2022-07-19 15:24 | ED Physician Documentation ---
PD HPI URI - Stated complaint Stated Complaint: SOA - Chief complaint Chief Complaint: Resp - History obtained from History obtained from: Patient - History of Present Illness Timing - onset: How many weeks ago (has had cough and dyspnea for few weeks this time. Had similar symptoms in April and seen by PCP, with Rx Amox, Albuterol, codeine, and robitussin. Patient says improved mostly and did not use MDI. Symptoms again about 1 month ago and seen again, with Rx Amox again 3 weeks ago. Still with symptoms.) Timing duration: Weeks Timing details: Gradual onset, Still present Associated symptoms: Productive cough, Dyspnea (wheezing). No: Fever, Chills, Nasal congestion, Sore throat, Hemoptysis, Bilateral edema Contributing factors: No: Sick contact, Immunocompromised, COPD / asthma Similar symptoms before: No diagnosis Recently seen: Clinic (see above; states Dx as pneumonia based on CXR in clinic.) Review of Systems Constitutional: denies: Fever, Chills, Myalgias Nose: reports: Congestion. 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: section, Hysterectomy - Present Medications Home Medications: Ambulatory Orders Medication Instructions Recorded Confirmed Levothyroxine Sodium [Synthroid] 75 mcg PO DAILY 02/17/13 02/17/13 Metformin HCl [Glucophage] 1,500 mg PO HS 02/17/13 02/17/13 Blood Sugar Diagnostic [Glucometer 1 each MC TID #1 pkg 05/14/17 Strips] Blood-Glucose Meter [Glucometer] 1 each MC DAILY #1 each 05/14/17 Ibuprofen [Motrin] 600 mg PO Q6HR PRN #60 tablet 05/14/17 Ondansetron [Zofran Odt] 8 mg PO Q8HR PRN #30 tab.rapdis 05/14/17 diazePAM [Valium] 5 mg PO QPM #20 tablet 05/14/17 traMADol [Ultram] 50 mg PO Q4HR PRN #30 tablet 05/14/17 Benzonatate [Tessalon] 100 mg PO TID PRN #20 cap 07/19/22 Doxycycline Hyclate 100 mg PO BID 10 Days #20 cap 07/19/22 dexAMETHasone [Decadron] 4 mg PO DAILY #5 tablet 07/19/22 dexAMETHasone [Decadron] 4 mg PO DAILY #5 tablet 07/19/22 - Allergies Allergies/Adverse Reactions: Allergies Allergy/AdvReac Type Severity Reaction Status Date / Time No Known Drug Allergies Allergy Verified 07/19/22 15:10 - Social History Does the pt smoke?: No Smoking Status: Current every day smoker Does the pt drink ETOH?: No Does the pt have substance abuse?: No - Immunizations Immunizations are current?: Yes - POLST Patient has POLST: No POLST Status: Full Code Results - Vitals Vitals: Vital Signs - 24 hr 07/19/22 07/19/22 07/19/22 15:10 16:06 16:38 Temperature 36.5 C Heart Rate 90 89 95 Respiratory 22 16 19 Rate Blood Pressure 150/68 H 105/95 H O2 Saturation 98 99 Oxygen O2 Source Room air PD Medical Decision Making - ED course Complexity details: considered differential (recurrent cough and wheezing. Not feeling ill per se with the persistent cough so may be residual bronchial inflammation rather than persistent infection. Did not improve as much with 2nd course of Amox. Can try Doxy instead. Encourage use of Albuterol.), d/w patient Reviewed Lab Results: chest xray is clear. No pneumonia at this time. May be residual bronchial inflammation. Could benefit from short steroid course but she is concerned about her sugars (reasonably) so to try doxy, tessalon, albuterol reguarly and see. Can add the Decadron if not improving well over fdew days. Departure - Departure Disposition: 01 Home, Self Care Clinical Impression: Bronchitis with acute wheezing Condition: Stable Record reviewed to determine appropriate education?: Yes Instructions: ED Upper Resp Infec Abx Tx Follow-Up: IMCHELLE MARTINEZ MD [Primary Care Provider] - Prescriptions: dexAMETHasone [Decadron] 4 mg PO DAILY #5 tablet dexAMETHasone [Decadron] 4 mg PO DAILY #5 tablet Doxycycline Hyclate 100 mg PO BID 10 Days #20 cap Benzonatate [Tessalon] 100 mg PO TID PRN #20 cap PRN Reason: Cough Comments: Your chest x-ray is good here without any signs of pneumonia. It does seem like it had cleared to that extent. The recurring symptoms now may be recurrent infection or just residual inflammation. I would suggest using the albuterol inhaler 2 to 3 puffs 3-4 times daily for the next several days to a week. This will help with the whe ezing and improved sputum output. Also benzonatate if needed for cough. I would try a different antibiotic this time and I prescribed doxycycline twice daily for 10 days. You could benefit from a short course of a steroid to help with bronchial inflammation, but that would cause your blood sugars to elevate during the course of it. Hold off on it for now but that could be added if you are not improving well. Discharge Date/Time: 07/19/22 16:39
[2022-07-19] MEDS ORDERED: BENZONATATE 100 MG CAPSULE PO STA (15:47)
[2022-07-19] MEDS ORDERED: ALBUTEROL NEB 2.5 MG/3 ML INH STA (15:47)
[2022-07-19] MEDS ORDERED: DOXYCYCLINE 100 MG TABLET PO STA (15:47)
--- NOTE | 2022-07-19 16:07 | XRAY Report ---
PROCEDURE: Chest 1 View X-Ray INDICATIONS: chest pain TECHNIQUE: One view of the chest was acquired. COMPARISON: None. FINDINGS: Surgical changes and devices: None. Lungs and pleura: No pleural effusions or pneumothorax. Lungs are clear. Mediastinum: Mediastinal contours appear normal. Heart size is normal. Bones and chest wall: No suspicious bony lesions. Overlying soft tissues appear unremarkable. IMPRESSION: No acute cardiopulmonary process. Reviewed by: Jasper Oropeza MD on 07/19/2022 4:06 PM PDT Approved by: Jasper Oropeza MD on 07/19/2022 4:06 PM PDT Station ID: [id number]
[2022-07-19 16:44] VITALS: BP 105/95
== END 2022-07-19 16:39 | disposition home or self-care (01) ==
LOC: ED 15:05
DX: J40 Bronchitis, not specified as acute or chronic (principal); E11.9 Type 2 diabetes mellitus without complications; Z79.84 Long term (current) use of oral hypoglycemic drugs; F17.200 Nicotine dependence, unspecified, uncomplicated
CPT/HCPCS: 71045; 94640; 99283; A9270